=== PATIENT | female | born 1965 | race Caucasian/White ===

== ENCOUNTER 2020-10-04 08:28 | Emergency (ER) | payer BC ==
[2020-10-04] MEDS ORDERED: predniSONE 20 MG TAB ONE (08:47)
[2020-10-04] MEDS ORDERED: diphenhydrAMINE 25 MG CAP ONE (08:47)
[2020-10-04] MEDS ORDERED: Famotidine 20 MG TAB ONE (08:47)
== END 2020-10-04 10:18 | disposition home or self-care (01) ==
LOC: MADERS 08:28
DX: L50.0 Allergic urticaria (principal); I10 Essential (primary) hypertension; Z79.899 Other long term (current) drug therapy
CPT/HCPCS: 99283; J7512; Q0163